=== PATIENT | male | born 1960 | race American Indian/Alaskan Native ===

== ENCOUNTER 2018-01-15 13:57 | Outpatient (CLI) | payer OTHER ==
--- NOTE | 2018-01-16 06:31 | Magnetic Resonance Report ---
FINAL REPORT PROCEDURE: MR LE JOINT RT WO CON TECHNIQUE: Magnetic resonance imaging of the hip RIGHT was performed using standard pulse sequences. CPT 69433 HISTORY: CAM DEFORMITY RIGHT HIP COMPARISON: No prior studies are available for comparison. FINDINGS: Fracture line: None. Avascular necrosis: None. Marrow signal: Normal. Joint effusion: None. Joint space: Normal. Hip musculature: Normal. Visualized pelvis: Normal. Acetabular labrum: Normal. Soft tissues: Normal. IMPRESSION: Normal Examination.
== END 2018-01-15 13:58 | disposition home or self-care (01) ==
LOC: MRI 13:57
PROVIDERS: ATTEND Internal Medicine
DX: M25.551 Pain in right hip (principal); E03.9 Hypothyroidism, unspecified
CPT/HCPCS: 73721